=== PATIENT | male | born 1970 | race Caucasian/White ===

== ENCOUNTER 2020-12-20 14:32 | Emergency (ER) | payer OTHER ==
[~2020-12-20] VITALS: Ht 172.7 cm; Wt 88.5 kg
[2020-12-20] MEDS ORDERED: LISINOPRIL10 MG PO (15:01)
[2020-12-20] MEDS ORDERED: ASA81BEC PO (15:02)
[2020-12-20] MEDS ORDERED: CIALIS5 MG PO (15:02)
[2020-12-20] MEDS ORDERED: PRILOSEC10 MG PO (15:02)
[2020-12-20] MEDS ORDERED: CEPHALEXIN500 MG PO (18:18)
[2020-12-20 18:55] VITALS: BP 135/85
== END 2020-12-20 18:56 | disposition home or self-care (01) ==
LOC: M.ERS 14:32
DX: S61.215A Laceration without foreign body of left ring finger without damage to nail, initial encounter (principal); S61.213A Laceration without foreign body of left middle finger without damage to nail, initial encounter; I10 Essential (primary) hypertension; Z79.82 Long term (current) use of aspirin; W45.8XXA Other foreign body or object entering through skin, initial encounter; Y93.89 Activity, other specified; Y92.89 Other specified places as the place of occurrence of the external cause; Y99.9 Unspecified external cause status